=== PATIENT | male | born 1985 | race Asian ===

== ENCOUNTER 2019-07-03 14:06 | Inpatient (IN) | payer MEDICAID, SELFPAY ==
[~2019-07-03] VITALS: Ht 177.8 cm; Wt 77.4 kg
[2019-07-03] MEDS ORDERED: ROCURONIUM BROMIDE 50 MG/5 ML IV ONE ×2 (14:07→17:30)
[2019-07-03] MEDS ORDERED: ETOMIDATE 2 MG/ML VIAL IV ONE ×2 (14:07→17:30)
[2019-07-03] MEDS ORDERED: FEE EMEERGENCY 1 MIN EA MC ONE (14:07)
[2019-07-03] MEDS ORDERED: FEE PK DOSING 1 MIN EA MC ONE (14:07)
--- NOTE | 2019-07-03 14:20 | NUR ---
ABHIJIT FROM HOME TO ER BED 5. PT IS ALTERED ONLY WITHDRAWS FROM PAIN STIMULI. UNABLE TO GET INFORMATION FROM PT. PT BROUGHT IN FOR BEING FOUND UNCONSCIOUS BY FAMILY COVERED WITH VOMIT / SAT NOTED @ 85% DESPITE BEING ON 15% LPM VIA NON REBREATTHER MASK. PT NOTED BREATHING RAPID AND SHALLOW. NOTED COFFEE GROUND EMESIS AROUND HIS MOUTH. MD AT BEDSIDE FOR EVAL. AWAITING FOR FURTHER ORDERS
--- NOTE | 2019-07-03 14:24 | NUR ---
PT PREPARED FOR INTIBATION:
--- NOTE | 2019-07-03 14:25 | NUR ---
BRIAN RING (UNCLE) [phone] JACK(BOBBY) (SISTER) [phone]
[2019-07-03] MEDS ORDERED: PROPOFOL 100 ML ONE ×2 (14:26→19:33)
--- NOTE | 2019-07-03 14:26 | NUR ---
ETOMIDATE 30MG IVP
--- NOTE | 2019-07-03 14:27 | NUR ---
INTUBATED ET 7.5. 23 @ LIP. POSITIVE BILAT LUNG SOUND AND BILAT CHEST RISE.
--- NOTE | 2019-07-03 14:27 | NUR ---
ROCURONIUM 80MG IVP
[2019-07-03] MEDS: PROPOFOL 100 ML IV PRN ×9 (14:28→23:52)
--- NOTE | 2019-07-03 14:28 | NUR ---
PT IS BILAT UPPER ARM SOFT RESTRAINT TO PREVENT PT FROM PULLING TUBE.
--- NOTE | 2019-07-03 14:28 | NUR ---
PT STARTED ON PROPOFOL 5MCG/MIN. TOLERATING WELL. PT IS SEDATED
--- NOTE | 2019-07-03 14:29 | NUR ---
VENT SETTING: AC20, 500VT, 100%O2, +5PEEP
--- NOTE | 2019-07-03 14:30 | NUR ---
QUIROZ CATH INSERTED FR 16
--- NOTE | 2019-07-03 14:30 | NUR ---
RT PATIENT ORALLY INTUBATED DR ARNOLD WITH A 7.5 ETT SECURED AT 24CM AT THE LIP. PATIENT PLACED ON [facility] VENT WITH ORDERED SETTINGS. ALARMS CHECKED + AUDIBLE. RONDAU BAG AT HOB Addendum: 07/03/19 at 1511 by ELVIRA ASCENCIO RT Amended: Links added.
--- NOTE | 2019-07-03 14:33 | NUR ---
NGT APARTMENT RENTAL CLERK @ [facility]. PLACEMENT CONFIRMED BY +GURLING OVER EPIGASTRIC AREA UPON AUSCULTATION AND POSITIVE GASTRIC RESIDUAL RETURN WHICH IS COFFEE GROUND IN NATURE.
--- NOTE | 2019-07-03 14:46 | NUR ---
Ritika jackson in ED - 07/03/19 at 1504 by BERTHA ETOMIDATE 30MG IVP
--- NOTE | 2019-07-03 14:47 | NUR ---
Note renetta in EDM - 07/03/19 at 1504 by BERTHA INTUBATED ET 7.5. 23 @ LIP. POSITIVE BILAT LUNG SOUND AND BILAT CHEST RISE.
--- NOTE | 2019-07-03 14:47 | NUR ---
Ritika jackson in ED - 07/03/19 at 1504 by BERTHA ROCURONIUM 80MG IVP
[2019-07-03 15:05] LABS: BASOPHILS % (AUTO) 0.1 % (0.0-2.0); HEMATOCRIT 49 % (39-51); HEMOGLOBIN 16.6 g/dL (13.5-17.5); LYMPHOCYTES # (AUTO) 0.4 /CMM (0.8-4.8); LYMPHOCYTES % (AUTO) 2.9 % (20.0-44.0); MEAN CORPUSCULAR HGB CONC 34 g/dl (31.0-36.0); MEAN CORPUSCULAR VOLUME 83 fL (80-96); MONOCYTES # (AUTO) 0.2 /CMM (0.1-1.30); MONOCYTES % (AUTO) 1.4 % (2.0-12.0); NEUTROPHILS % (AUTO) 95.6 % (43.0-81.0); PLATELET COUNT (AUTO) 235 /CMM (150-450); RED BLOOD CELL COUNT(AUTO) 5.96 MIL/uL (4.5-6.0); WHITE BLOOD COUNT (AUTO) 12.6 K/uL (4.3-11.0)
[2019-07-03 15:20] LABS: ALANINE AMINOTRANSFERASE 82 U/L (12-78); ALBUMIN 4.1 g/dL (3.4-5.0); ALKALINE PHOSPHATASE 58 U/L (46-116); ASPARTATE AMINOTRANSFERASE 363 U/L (15-37); BILIRUBIN,DIRECT 0.1 mg/dL (0.0-0.2); BILIRUBIN,TOTAL 1.4 mg/dL (0.2-1.0); CALCIUM, SERUM 8.5 mg/dL (8.5-10.1); CARBON DIOXIDE 25 mmol/L (21-32); CHLORIDE 82 mmol/L (98-107); CREATININE 0.9 mg/dL (0.6-1.3); GLUCOSE 108 mg/dL (74-106); POTASSIUM 3.9 mmol/L (3.5-5.1); TOTAL PROTEIN, SERUM 7.7 g/dL (6.4-8.2); UREA NITROGEN, BLOOD 10 mg/dL (7-18)
[2019-07-03 15:22] LABS: SODIUM SERUM 114 mmol/L (136-145)
--- NOTE | 2019-07-03 15:26 | NUR ---
PROPOFOL INCREASED TO 10MCG/MIN, PT NOTED STARTING TO WAKE UP.
[2019-07-03 15:27] LABS: ALCOHOL, BLOOD < 3 mg/dL (0-0); MAGNESIUM 2.1 mg/dL (1.8-2.4)
--- NOTE | 2019-07-03 15:28 | NUR ---
RT AT BEDSIDE FOR ABG
[2019-07-03 15:31] LABS: BILIRUBIN,URINE Negative (NEGATIVE); BLOOD, URINE Large Ery/uL (NEGATIVE); COLOR,URINE Yellow (YELLOW); KETONES,URINE 15 (NEGATIVE); LEUKOCYTE ESTERASE ,URINE Negative (NEGATIVE); NITRITE, URINE Negative (NEGATIVE); PROTEIN,URINE Trace mg/dl (NEGATIVE); UGLUCOSE Negative (NEGATIVE); UROBILINOGEN,URINE 0.2 EU/dL (0.2)
[2019-07-03 15:34] LABS: APPEARANCE,URINE HAZY (CLEAR)
[2019-07-03 15:38] LABS: FERRITIN 193 ng/mL (8-388)
[2019-07-03 15:40] LABS: BACTERIA,URINE Few /HPF (None Seen); C-REACTIVE PROTEIN 1.9 mg/dL (0.0-0.9); RBC,URINE 20 /HPF (0-2); SQUAMOUS EPITHELIAL CELL,UR Few /HPF (None Seen); WBC,URINE 0-2 /HPF (0-3)
--- NOTE | 2019-07-03 15:49 | NUR ---
PT BACK FROM RADIOLOGY.
--- NOTE | 2019-07-03 15:50 | NUR ---
VENT 02 DECREASED TO 60% FROM 100% PER MD ORDERED. ABG WAS RELAYED TO MD BY RT
[2019-07-03 15:52] LABS: ABG BASE EXCESS -1.5 mmol/L; ABG PCO2 36.9 mmHg (35.0-45.0); ABG PH 7.406 (7.350-7.450); ABG PO2 191.7 mmHg (75.0-100.0); AaDO2 484.4 mmHg; COHb 0.4 % (0.5-1.5); MetHb 0.6 % (0.0-1.5); SITE, ABG Right Radial; VENT MODE, BG AC 20 500 100% +5
--- NOTE | 2019-07-03 15:54 | NUR ---
PROPOFOL INCREASED TO 15MCG/MIN PT IS NOTED WAKING UP MANIFESTED BY MOVING HIS ARMS
[2019-07-03] MEDS ORDERED: VANCOMYCIN 1 GM in IV D5W 250 ML IV ONE (16:00)
[2019-07-03] MEDS ORDERED: MEROPENEM 1,000 MG in IV NS 0.9% 100 ML IV ONE (16:00)
--- NOTE | 2019-07-03 16:18 | NUR ---
CALLED LUIS MANUEL NEPHJOHN, PAGED CANDLES POURER
[2019-07-03 16:19] LABS: CREATINE KINASE, TOTAL 59790 U/L (39-308)
--- NOTE | 2019-07-03 16:25 | NUR ---
urine output: 1625ml
[2019-07-03] MEDS ORDERED: IV NS 0.9% 1,000 ML BAG IV ONE (16:30)
--- NOTE | 2019-07-03 16:36 | NUR ---
CONSENT FOR PICC LINE INSERTION SIGNED BY . PT IS SADATED.
--- NOTE | 2019-07-03 16:39 | NUR ---
PT NOTED WAKING UP AGAIN. PROPOFOL INCREASED TO 20MCG. VSS
[2019-07-03 16:45] LABS: BAND % (MANUAL) 16 % (0.0-5.0); LYMPHOCYTES % (MANUAL) 2 % (16-48); MONOCYTES % (MANUAL) 2 % (0-11.0); NEUTROPHILS % (MANUAL) 80 (42-76)
--- NOTE | 2019-07-03 16:51 | NUR ---
PT NOTED AWAKING UP. PROPOFOL INCREASED TO PROPOFOL 25MCG.
[2019-07-03] MEDS ORDERED: ONDANSETRON HCL/PF 4 MG/2 ML VIAL IVP PRN (17:00)
[2019-07-03] MEDS ORDERED: MAGNESIUM HYDROXIDE 30 ML UDC PO PRN (17:00)
[2019-07-03] MEDS ORDERED: MAG HYDROX/AL HYDROX/SIMETH 30 ML UDC PO PRN (17:00)
[2019-07-03] MEDS ORDERED: HYDROCODONE/APAP 5/325MG 1 EACH TABLET PO PRN (17:00)
[2019-07-03] MEDS ORDERED: Z GUARD REMEDY 2 OZ OINT TP PRN (17:00)
[2019-07-03] MEDS ORDERED: ZOLPIDEM TARTRATE 5 MG TABLET PO PRN (17:00)
[2019-07-03] MEDS ORDERED: ACETAMINOPHEN 325 MG TABLET PO PRN (17:00)
--- NOTE | 2019-07-03 17:00 | NUR ---
CALLED LUIS MANUEL NEPHJOHN, NEEDLE LOOM SETTER PAGED
[2019-07-03] MEDS ORDERED: IV NS 0.9% 1,000 ML IV ONE (17:30)
[2019-07-03] MEDS ORDERED: PIPERACILLIN /TAZOBACTAM 3.375 G in IV D5W 50 ML IV SCH (18:00)
--- NOTE | 2019-07-03 18:00 | NUR ---
PICC LINE INSERTED BY HERBER DOSHI. WITH 3 LUMEN. PLACEMENT CONFIRMED BY PICC NURSE.
--- NOTE | 2019-07-03 18:00 | NUR ---
urine output : 3175 ml
[2019-07-03 18:10] LABS: CALCIUM, SERUM 6.2 mg/dL (8.5-10.1); CREATININE 0.9 mg/dL (0.6-1.3); POTASSIUM 3.1 mmol/L (3.5-5.1)
--- NOTE | 2019-07-03 18:17 | NUR ---
ET TUBE ADVANCED FROM 24CM TO 27CM PER DR ARNOLD. BILATERAL BREATH SOUNDS HEARD. Addendum: 07/03/19 at 1818 by SHAWNEE WOLFE RT Amended: Links added.
--- NOTE | 2019-07-03 18:26 | NUR ---
PT IS WAKING UP ONCE AGAIN PROPOFOL INCREASED TO PROPOFOL 45MCG/MIN
--- NOTE | 2019-07-03 18:41 | NUR ---
1IL NS BOLUS ORDER BY DR. ARNOLD CANCELLED. PT WAS GIVEN 2.8L NS BOLUS ALREADY. IS AWARE AND ACKNOWLEDGED
--- NOTE | 2019-07-03 19:16 | NUR ---
pT ASSIGNED ICU BED 252
[2019-07-03 19:38] LABS: ALBUMIN 2.6 g/dL (3.4-5.0); BILIRUBIN,DIRECT 0.2 mg/dL (0.0-0.2); TOTAL PROTEIN, SERUM 4.9 g/dL (6.4-8.2)
--- NOTE | 2019-07-03 20:05 | NUR ---
REPORT GIVEN TO HERBER SOTELO FOR HENOK.
--- NOTE | 2019-07-03 20:30 | NUR ---
RECEIVED PATIENT FROM ER,ORALLY INTUBATED ,SEDATED ON PROPOFOL AT 50 50 MCG/KG/MIN BUT STILL AGITATED,WITH BILATERAL SOFT WRIST RESTRAINTS.ON AC MODE,BREATHING REGULAR AND NON LABORED. PICC LINE @ YOANA ,ALL PORT WITH GOOD BLOOD RETURN. NGT TO LIWS WITH MINIMAL DRAINAGE. COMFORT CARE DONE,NEEDS ATTENDED. WAS FOUND UNRESPONSIVE AT HOME(NOT KNOWN HOW LONG PATIENT WAS DOWN), INTUBATED IN THE ER, CT HEAD(-).,+ SIGN OF VOMITING COFFEE GROUND MATERIAL FROM HOME.NGT INSERTED WITH MINIMAL OUTPUT OBTAINED.CT SHOWED LARGE BILATERAL LOWER LOBE CONSOLIDATIONS.CT CERVICAL,SPINE (-) FRACTURE
[2019-07-03 20:39] LABS: D-DIMER 1.01 mg/L(FEU (0.17-0.50)
--- NOTE | 2019-07-03 20:45 | NUR ---
PT TRANSPORTED TO UNIT ON [facility] WITH EMT, RT AND RN AT BEDSIDE W/ ACLS PROTOCOL. NAD NOTED.
[2019-07-03 20:46] VITALS: BP 120/63
[2019-07-03 21:00] VITALS: BP 99/59
[2019-07-03] MEDS: Sodium Bicarbonate 150 MEQ in IV NS 0.9% 1,000 ML IV PRN (21:14)
[2019-07-03 22:41] VITALS: BP 105/66
[2019-07-03 23:00] VITALS: BP 101/60
[2019-07-04] VITALS (38 sets, daily range): BP systolic 95–122; BP diastolic 41–72
--- NOTE | 2019-07-04 | NUR ---
WOKE UP VERY AGITATED,KICKING LEGS AND FORCING OUT HANDS OUT OF RESTRAINTS, PROPOFOL DRIP INCREASED Q 5 MINS UP TO 90 MCG/KG/MIN. CALLED MD TO REFER AGITATION,MAYBE PRN MEDS. TODD RIVERA RESPONDED,ORDERED ATIVAN PRN.
[2019-07-04] MEDS: PIPERACILLIN /TAZOBACTAM 3.375 G in IV D5W 50 ML IV SCH ×5 (00:12→23:17)
[2019-07-04] MEDS: LORAZEPAM INJ 2 MG/ML VIAL IV PRN ×2 (00:17→00:31)
[2019-07-04] MEDS: PROPOFOL 100 ML IV PRN ×9 (00:29→23:15)
[2019-07-04] MEDS ORDERED: VANCOMYCIN 1.25 GM in IV D5W 250 ML IV SCH ×2 (01:00→03:03)
--- NOTE | 2019-07-04 03:00 | NUR ---
FIO2 DECREASE TO 50 %
--- NOTE | 2019-07-04 03:26 | NUR ---
RT NOTE Pt rec'd orally intubated via ETT sz #7.5 secured at 27 cm at the lipline. Pt on [facility] vent on AC mode settings as charted. Sx'd for thick mod amt of knowles secretions. Alarms are set and audible . Vent Plugged into red outlet. Ambu bag bedside. Will continue to monitor. Addendum: 07/04/19 at 0327 by FREDRICK METZGER RT Amended: Links added.
[2019-07-04 04:49] LABS: BASOPHILS % (AUTO) 0.1 % (0.0-2.0); HEMATOCRIT 43 % (39-51); HEMOGLOBIN 14.5 g/dL (13.5-17.5); LYMPHOCYTES # (AUTO) 0.4 /CMM (0.8-4.8); LYMPHOCYTES % (AUTO) 3.1 % (20.0-44.0); MEAN CORPUSCULAR HGB CONC 34 g/dl (31.0-36.0); MEAN CORPUSCULAR VOLUME 83 fL (80-96); MONOCYTES # (AUTO) 0.5 /CMM (0.1-1.30); MONOCYTES % (AUTO) 4.8 % (2.0-12.0); NEUTROPHILS # (AUTO) 10.6 /CMM (1.8-8.9); PLATELET COUNT (AUTO) 185 /CMM (150-450); RED BLOOD CELL COUNT(AUTO) 5.15 MIL/uL (4.5-6.0); WHITE BLOOD COUNT (AUTO) 11.5 K/uL (4.3-11.0)
[2019-07-04 04:56] LABS: CALCIUM, SERUM 7.6 mg/dL (8.5-10.1); CREATININE 0.9 mg/dL (0.6-1.3); MAGNESIUM 2.3 mg/dL (1.8-2.4); PHOSPHORUS 1.3 mg/dL (2.5-4.9); POTASSIUM 3.4 mmol/L (3.5-5.1)
[2019-07-04 05:00] LABS: BILIRUBIN,DIRECT 0.2 mg/dL (0.0-0.2); BILIRUBIN,TOTAL 0.9 mg/dL (0.2-1.0); TOTAL PROTEIN, SERUM 5.8 g/dL (6.4-8.2)
--- NOTE | 2019-07-04 06:00 | NUR ---
SISTER CALLED(FROM OUT OF STATE) HER NAME IS THY, MADE RN AWARE THAT ACCORDING TO PATIENT'S COUSIN ,PATIENT TOOK SOME "SHROOM" LAST TUESDAY AFTERNOON TO NIGHT.ALSO WANTS TO LET US KNOW NOT TO TELL THEIR UNCLE (BRIAN) ABOUT PATIENT TAKING THIS STUFF.
--- NOTE | 2019-07-04 06:15 | NUR ---
RADIOLOGIST DR. FLORES CALLED TO PULL BACK ON THE ET TUBE BY 2-3 CM . 0620 RESP. THERAPIST WAS MADE AWARE.
[2019-07-04] MEDS: Sodium Bicarbonate 150 MEQ in IV NS 0.9% 1,000 ML IV PRN ×2 (06:18→16:05)
--- NOTE | 2019-07-04 06:55 | NUR ---
RT NOTE ETT Pulled back by 3 cm. ETT secured at 24cm per md orders Addendum: 07/04/19 at 0656 by FREDRICK METZGER RT Amended: Links added.
[2019-07-04] MEDS ORDERED: POTASSIUM PHOSPHATE MM 15 MMOL in IV NS 0.9% 250 ML IV SCH (08:00)
[2019-07-04] MEDS ORDERED: FEE PK DOSING 1 MIN EA MC ONE (08:31)
[2019-07-04 09:22] LABS: ABG BASE EXCESS 3.2 mmol/L; ABG OXYGEN SATURATION 98.7 % (92.0-98.5); ABG PCO2 30.8 mmHg (35.0-45.0); ABG PO2 180.6 mmHg (75.0-100.0); AaDO2 141.3 mmHg; COHb 0.2 % (0.5-1.5); MetHb 0.7 % (0.0-1.5); O2Hb 97.8 % (94.0-97.0); PEEP,BG 5 cm H2O; SITE, ABG Left Radial; VT, ABG 500 mL
[2019-07-04] MEDS: VANCOMYCIN 1.25 GM in IV D5W 250 ML IV SCH ×2 (10:26→17:20)
[2019-07-04] MEDS: ENOXAPARIN SODIUM 40 MG/0.4 ML DISP.SYRIN SQ SCH (10:27)
--- NOTE | 2019-07-04 12:29 | NUR ---
SEDATION VACATION COMPLETED. PT WOKE UP, FOLLOWED COMMANDS, MADE EYE CONTACT AND TRACKED. MOVED ALL EXTREMITIES ON COMMANDS. STRONG RUT HANDS AND LEGS. PT NODDED HEAD STATING UNDERSTANDING TO YES AND NO QUESTIONS. PT SHOOK HIS HEAD STATING HE HAD NOT BEEN SICK LATELY. NODDED HIS HEAD STATING HE HAD DONE SHROOMS RECENTLY. AFTER A FEW MINUTES PATIENT STARTED TO BECOME AGITATED. SEDATION RESUMED.
--- NOTE | 2019-07-04 17:08 | NUR ---
VANCO TROUGH RESULT = 13. PER PHARMACY OK TO GIVE CURRENT DOSE.
--- NOTE | 2019-07-04 19:30 | NUR ---
CHEMICAL UNIT OPERATOR INITIAL SHIFT NOTES RECEIVED PATIENT IN BED, EYES CLOSED, ORALLY INTUBATED ON MECHANICAL VENT, TOLERATING WELL, NO S/S OF RESPIRATORY DISTRESS AT THIS TIME. BREATHING EVEN AND NONLABORED. BEDSIDE TELEMETRY MONITORING READS SINUS RHYTHM. YOANA PICC PATENT AND INTACT, INFUSING BICARB DRIP AND DIPRIVAN DRIP. BILATERAL SOFT WRIST RESTRAINTS FOR SAFETY. WILL CONTINUE TO MONITOR
--- NOTE | 2019-07-04 19:42 | NUR ---
END OF SHIFT NOTE: PT HAD AN UNEVENTFUL SHIFT. COVID TEST CAME BACK NEGATIVE AT THE END OF THE SHIFT. SEE PREVIOUS NOTE REGARDING SEDATION VACATION. PER DR. AKINS PLAN TO DO A VENT WEANING TRIAL IN AM.
--- NOTE | 2019-07-04 20:07 | NUR ---
PT RECEIVED ORALLY INTUBATED WITH 7.5 ETT SECURED @24CM ON LIP [facility] WITH NOTED SETTINGS. NO RESP DISTRESS NOTED AT THIS TIME. AIRWAY PATENT AND SECURED. COMMUNICATIONS MARKETING INTERN DONE. PT SUCTIONED. VENT ALARMS SET AND AUDIBLE. VENT PLUGGED INTO TO RED OUTLET. WILL CONT TO MONITOR THE PT T/O SHIFT..
[2019-07-05] VITALS (32 sets, daily range): BP systolic 99–165; BP diastolic 42–99
[2019-07-05] MEDS: Sodium Bicarbonate 150 MEQ in IV NS 0.9% 1,000 ML IV PRN ×3 (01:05→19:53)
[2019-07-05] MEDS: VANCOMYCIN 1.25 GM in IV D5W 250 ML IV SCH ×3 (01:54→18:49)
[2019-07-05] MEDS: PROPOFOL 100 ML IV PRN ×2 (02:22→07:15)
[2019-07-05 04:33] LABS: BASOPHILS % (AUTO) 0.3 % (0.0-2.0); HEMATOCRIT 38 % (39-51); HEMOGLOBIN 13.1 g/dL (13.5-17.5); LYMPHOCYTES # (AUTO) 0.7 /CMM (0.8-4.8); LYMPHOCYTES % (AUTO) 7.8 % (20.0-44.0); MEAN CORPUSCULAR HGB CONC 34 g/dl (31.0-36.0); MEAN CORPUSCULAR VOLUME 84 fL (80-96); MONOCYTES # (AUTO) 0.6 /CMM (0.1-1.30); NEUTROPHILS % (AUTO) 84.9 % (43.0-81.0); PLATELET COUNT (AUTO) 150 /CMM (150-450); RED BLOOD CELL COUNT(AUTO) 4.57 MIL/uL (4.5-6.0); WHITE BLOOD COUNT (AUTO) 9.4 K/uL (4.3-11.0)
[2019-07-05 04:47] LABS: CALCIUM, SERUM 7.3 mg/dL (8.5-10.1); CREATININE 0.9 mg/dL (0.6-1.3)
[2019-07-05] MEDS: PIPERACILLIN /TAZOBACTAM 3.375 G in IV D5W 50 ML IV SCH ×3 (05:46→17:30)
[2019-07-05 08:54] LABS: PHOSPHORUS 2.1 mg/dL (2.5-4.9)
[2019-07-05 09:20] LABS: ABG BASE EXCESS 5.9 mmol/L; ABG OXYGEN SATURATION 98.8 % (92.0-98.5); ABG PCO2 41.6 mmHg (35.0-45.0); ABG PH 7.476 (7.350-7.450); AaDO2 122.4 mmHg; COHb 0.4 % (0.5-1.5); MetHb 0.3 % (0.0-1.5); O2Hb 98.1 % (94.0-97.0); PEEP,BG 5 cm H2O; SITE, ABG Right Radial; VENT MODE, BG SIMV PSV 12; VT, ABG 500 mL
--- NOTE | 2019-07-05 09:27 | NUR ---
PT EXTUBATED WITHOUT DIFFICULTY AT 0927. PT ALERT OX4, 3L NASAL CANNULA APPLIED.
[2019-07-05] MEDS ORDERED: POTASSIUM CHLORIDE 20 MEQ POWDER PACKET GT SCH (09:30)
[2019-07-05] MEDS ORDERED: DC PROPOFOL WHEN EXTUBATED XX PRN (10:00)
--- NOTE | 2019-07-05 10:00 | NUR ---
NG TUBE DC'D WITHOUT DIFFICULTY PER MD ORDERS. TIP INTACT
[2019-07-05] MEDS: ENOXAPARIN SODIUM 40 MG/0.4 ML DISP.SYRIN SQ SCH (10:12)
[2019-07-05] MEDS ORDERED: POTASSIUM CHLORIDE 10 MEQ TABLET.SA PO ONE (10:30)
--- NOTE | 2019-07-05 13:00 | NUR ---
BESIDE SWALLOW EVAL DONE BY RN. NO COUGHING OR CHOKING NOTED. PT O2 LEVEL REMAINED AT 100%.
[2019-07-05] MEDS: POTASSIUM PHOSPHATE MM 7.5 MMOL in IV NS 0.9% 100 ML IV SCH ×2 (14:43→18:49)
--- NOTE | 2019-07-05 17:19 | NUR ---
PT ALERT OX3 WEARING GLASSES, STATING THAT HIS VISION IS BLURRY WITH HIS GLASSES ON. PT WAS ON THE PHONE WITH A FRIEND WHEN HE TOOK HIS GLASSES OFF AND REALIZED HE COULD SEE BETTER WITHOUT HIS GLASSES. HIS FRIEND ASKED HIM IF HE HAD HIS CONTACTS ON. THE PATIENT STATED HE DIDN'T THINK SO. RN LOOKED AT PATIENTS EYES AND SAW THE OUTLINE OF PT'S CONTACTS. PT STATES HE PUT HIS CONTACTS IN HIS EYES THE MORNING BEFORE HE WAS ADMITTED. PT'S EYES WERE NOT REDDENED, PT DENIED SORENESS. RN ASSISTED PT IN REMOVING HIS CONTACTS. PER PT REQUEST CONTACTS WERE DISPOSED OF. PT STATES HE USUALLY ONLY WEARS HIS CONTACTS FOR 1 DAYS.
--- NOTE | 2019-07-05 19:17 | NUR ---
END OF SHIFT NOTE: PT HAD A PRODUCTIVE DAY. PT WAS EXTUBATED AT 0927, ON 3L NC. 3900ML URINE OUTPUT FROM QUIROZ. PT ATE 100% OF DINNER WITHOUT DIFFICULTY. PT CHECKED ON HOURLY AND PRN BY NURSING STAFF.
[2019-07-06] VITALS (17 sets, daily range): BP systolic 124–156; BP diastolic 75–99
[2019-07-06] MEDS: VANCOMYCIN 1.25 GM in IV D5W 250 ML IV SCH ×3 (01:00→17:28)
[2019-07-06 04:32] LABS: BASOPHILS % (AUTO) 0.2 % (0.0-2.0); EOSINOPHILS % (AUTO) 1.6 % (0.0-6.0); HEMATOCRIT 41 % (39-51); HEMOGLOBIN 13.6 g/dL (13.5-17.5); LYMPHOCYTES # (AUTO) 0.8 /CMM (0.8-4.8); LYMPHOCYTES % (AUTO) 8.8 % (20.0-44.0); MEAN CORPUSCULAR HGB CONC 34 g/dl (31.0-36.0); MEAN CORPUSCULAR VOLUME 84 fL (80-96); MONOCYTES # (AUTO) 0.6 /CMM (0.1-1.30); MONOCYTES % (AUTO) 7.2 % (2.0-12.0); NEUTROPHILS # (AUTO) 7.1 /CMM (1.8-8.9); NEUTROPHILS % (AUTO) 82.2 % (43.0-81.0); PLATELET COUNT (AUTO) 193 /CMM (150-450); RED BLOOD CELL COUNT(AUTO) 4.81 MIL/uL (4.5-6.0); WHITE BLOOD COUNT (AUTO) 8.7 K/uL (4.3-11.0)
[2019-07-06 04:34] LABS: CALCIUM, SERUM 8.2 mg/dL (8.5-10.1); CREATININE 0.8 mg/dL (0.6-1.3); MAGNESIUM 1.9 mg/dL (1.8-2.4); POTASSIUM 3.4 mmol/L (3.5-5.1)
--- NOTE | 2019-07-06 05:10 | NUR ---
PT BATHED [phone]. SHAVED HAIR WASHED COMPLETE LINEN CHANGE. PT ASK MULTIPLE QUESTIONS ABOUT LIGHTS IN ROOM, HOW TO BATHE, HOW TO BRUSH TEETH. BLOOD PRESSURE CUFF, WATER HE IS DRINKING, IF BLUEBERRIES KEEP HIM HEALTHY, OBSESSED OVER CLOCK ON WALL BECAUSE IT WAS 5 MIN OFF FROM HIS PHONE. PRATER WELL. WEAR GLASSES AND GLASSES CLEANED. LEADS CHANGED PULSE OX CHANGED PICC LINE DRESSING CHANGED. ALL EXPLAINED TO PATIENT IN DETAIL MULTIPLE TIMES. RIGHT AND LEFT AC HEP LOCK D/C RIGHT WAS LEAKING. LEFT WAS OCCLUDED. PT TOLERATED BATH AND CHANGE OF LINEN WELL
--- NOTE | 2019-07-06 07:29 | NUR ---
DID NOT SEE MED ON MAR
--- NOTE | 2019-07-06 07:30 | NUR ---
COMPUTATIONAL PHYSICIST OPENING NOTE Received patient awake in bed appears calm and relaxed. On RA tolerating well. No signs of bleeding currently extubated. No signs of distress. No signs of anxiousness. Arzola catheter in place draining clear pink urine. Skin intact. Has YOANA PICC line running antibiotic IVs and fluids. Safety measures reinforced. Call light within reach. Siderails up x2. Will cont to monitor.
--- NOTE | 2019-07-06 07:33 | NUR ---
DID NOT SEE ON APR.
[2019-07-06] MEDS: PIPERACILLIN /TAZOBACTAM 3.375 G in IV D5W 50 ML IV SCH ×6 (07:34→23:04)
--- NOTE | 2019-07-06 07:45 | NUR ---
ACQUISITION MARKETING MANAGER NOTE Dr. Soto ordered to repeat phosphorous level and stat urinalysis. Input order for phosphorous.
--- NOTE | 2019-07-06 07:52 | NUR ---
missed zosyn dose at 0000 and 0600. Called pharmacy ok to give at 0730, then next dose at 1300. informed oncoming Jignesh Faith. Vanco given early at 0730, instead of 0900 due to 0100 not given. Ok to give 1700 dose.
[2019-07-06] MEDS: Sodium Bicarbonate 150 MEQ in IV NS 0.9% 1,000 ML IV PRN (07:55)
[2019-07-06] MEDS: ENOXAPARIN SODIUM 40 MG/0.4 ML DISP.SYRIN SQ SCH (08:22)
--- NOTE | 2019-07-06 08:30 | NUR ---
CHAPERONE NOTE Urine collected from patient using sterile collection cup. Placed in specimen fridge called labs to sampler pickup.
--- NOTE | 2019-07-06 09:34 | NUR ---
BOX CAR WASHER NOTE Received order from Dr. Briseno to DC lobo catheter. Noted and carried out,
[2019-07-06] MEDS: POTASSIUM CHLORIDE 20 MEQ TAB.PRT.SR PO SCH ×2 (10:50→11:59)
[2019-07-06 12:00] LABS: APPEARANCE,URINE SLIGHTLY HAZY (CLEAR); BILIRUBIN,URINE NEGATIVE (NEGATIVE); BLOOD, URINE LARGE Ery/uL (NEGATIVE); COLOR,URINE AMBER (YELLOW); KETONES,URINE 15 (NEGATIVE); LEUKOCYTE ESTERASE ,URINE NEGATIVE (NEGATIVE); NITRITE, URINE NEGATIVE (NEGATIVE); PH,URINE 8.5 (5.0-8.0); PROTEIN,URINE 30 mg/dl (NEGATIVE); UGLUCOSE NEGATIVE (NEGATIVE); UROBILINOGEN,URINE 0.2 EU/dL (0.2)
[2019-07-06 12:01] LABS: RBC,URINE TOO NUMEROUS TO COUN /HPF (0-2); SQUAMOUS EPITHELIAL CELL,UR None Seen /HPF (None Seen)
[2019-07-06 12:02] LABS: BACTERIA,URINE None seen /HPF (None Seen); WBC,URINE 0-2 /HPF (0-3)
--- NOTE | 2019-07-06 12:45 | NUR ---
ICU TRANSFER NOTE Patient was transferred to via wheelchair in stable condition with IV meds and chart tolerated well. Set up in room 320-2. Gave report to Fabby CRAVEN for remington.
--- NOTE | 2019-07-06 13:00 | NUR ---
MS CAFETERIA CLERK FROM ICU NOTE Received patient awake in bed appears calm and relaxed. On RA tolerating well. No signs of bleeding .No signs of distress on room air. With mild signs of anxiousness saying he has short term memory and can't leave his ID and belongings in the cabinet. With BRP with standby assist. Skin intact. Has YOANA PICC line running antibiotic IVs and fluids. Safety measures reinforced. Call light within reach. Siderails up x2. Will cont to monitor.
--- NOTE | 2019-07-06 18:45 | NUR ---
PT RESTING IN BED AND ATE 100%DINNER AND REFUSED TO WATCH TV.DENIES PAIN OR DISTRESS.WITH ONGOING VANCO IV ATB INFUSING WELL.CALL LIGHT PLACED WITHIN REACH.
--- NOTE | 2019-07-06 20:00 | NUR ---
ALERT AND ORIENTED X4, STABLE ON ROOM AIR, NO COMPLAIN OF PAIN, AMBULATES WITH CAUTION, YOANA PICC LINE, PATENT, DRESSING DRY AND INTACT, CONTINENT OF BOWEL AND BLADDER, COOPERATIVE
[2019-07-06] MEDS: LORAZEPAM INJ 2 MG/ML VIAL IV PRN (20:50)
[2019-07-07] MEDS: VANCOMYCIN 1.25 GM in IV D5W 250 ML IV SCH ×2 (00:01→08:24)
[2019-07-07] MEDS: PIPERACILLIN /TAZOBACTAM 3.375 G in IV D5W 50 ML IV SCH ×2 (05:31→11:11)
--- NOTE | 2019-07-07 06:51 | NUR ---
RN NOTES ALERT AND ORIENTED X4, STABLE ON ROOM, NO DISTRESS, DENIES ANY PAIN AT THIS TIME, AMBULATES IN ROOM AND HALLWAY, BM X1, YOANA PICC LINE PATENT, DRESSING DRY AND INTACT, KENDRA GARVEY SCHEDULED, CONTINUE HOSPITALIZATION, MONITOR CPK
[2019-07-07 08:00] VITALS: BP 146/92
--- NOTE | 2019-07-07 08:00 | NUR ---
MS RN AM NOTES ALERT AND ORIENTED X4, STABLE ON ROOM AIR, NO COMPLAIN OF PAIN/DISTRESS. AMBULATES AD JOELLEN. YOANA PICC LINE, PATENT, DRESSING DRY AND INTACT, CONTINENT OF BOWEL AND BLADDER, WITH BRP.COOPERATIVE.DR JEREZ AND I COORDINATED WITH LAB FOR THE QUESTIONABLE TCK RESULT DATED 07/06/19 AT 2218 : [id number] AND FOR LAB DRAW MISSED IN OBTAINING BLOOD DRAW FOR AM LABS ORDERED. WILL CONTINUE TO FOLLOW UP WITH LABS AND UPDATE DR JEREZ FOR LATEST TCK RESULT.CALL LIGHT PLACED WITHIN REACH.
[2019-07-07 08:45] LABS: BASOPHILS % (AUTO) 0.6 % (0.0-2.0); EOSINOPHILS % (AUTO) 3.7 % (0.0-6.0); HEMATOCRIT 47 % (39-51); HEMOGLOBIN 15.2 g/dL (13.5-17.5); LYMPHOCYTES # (AUTO) 0.8 /CMM (0.8-4.8); LYMPHOCYTES % (AUTO) 10.4 % (20.0-44.0); MEAN CORPUSCULAR HGB CONC 33 g/dl (31.0-36.0); MEAN CORPUSCULAR VOLUME 85 fL (80-96); MONOCYTES # (AUTO) 0.4 /CMM (0.1-1.30); MONOCYTES % (AUTO) 4.8 % (2.0-12.0); NEUTROPHILS # (AUTO) 6.2 /CMM (1.8-8.9); NEUTROPHILS % (AUTO) 80.5 % (43.0-81.0); PLATELET COUNT (AUTO) 238 /CMM (150-450); WHITE BLOOD COUNT (AUTO) 7.7 K/uL (4.3-11.0)
[2019-07-07] MEDS: ENOXAPARIN SODIUM 40 MG/0.4 ML DISP.SYRIN SQ SCH (08:56)
[2019-07-07 09:01] LABS: POTASSIUM 3.8 mmol/L (3.5-5.1)
--- NOTE | 2019-07-07 09:16 | NUR ---
BASSAM RIVERA OF LAB CALLED AND STATED THAT THE RESULT DATED 07/06/19 AT 2218 WAS MADE IN ERROR DUE DILUTION OF TEST AND THE LATEST TCK RESULT IS [id number].NOTIFIED DR JEREZ OF THE LATEST TCK RESULT WITH ORDER TO ADMINISTER IV 0.9NS IVF TO RUN AT 150 ML/HR RATE.
[2019-07-07] MEDS: IV NS 0.9% 1,000 ML IV PRN ×2 (11:07→21:00)
[2019-07-07 16:00] VITALS: BP 126/77
[2019-07-07 20:00] VITALS: BP 126/70
--- NOTE | 2019-07-07 20:02 | NUR ---
RN NOTES ALERT AND ORIENTED X4, STABLE ON ROOM AIR, NO COMPLAIN OF PAIN, NOTED AMBULATING IN ROOM AND HALLWAY, REPORTED BM X1 TODAY, IV ABX DISCONTINUED, NS AT 150 ML/HR. WILL CONTINUE TO MONITOR.
[2019-07-07 20:38] VITALS: BP 126/70
[2019-07-07] MEDS: LORAZEPAM INJ 2 MG/ML VIAL IV PRN (23:17)
[2019-07-08] MEDS: IV NS 0.9% 1,000 ML IV PRN ×3 (05:03→18:57)
--- NOTE | 2019-07-08 06:55 | NUR ---
RN NOTES ALERT AND ORIENTED X4, STABLE ON ROOM AIR, CALM, COOPERATIVE, AMBULATES IN ROOM AND HALLWAY, IV ABX DISCONTINUED, FOLLOW UP CPK, CONTINUE IV FLUIDS.
[2019-07-08 07:04] LABS: BASOPHILS % (AUTO) 0.3 % (0.0-2.0); EOSINOPHILS % (AUTO) 7.1 % (0.0-6.0); HEMATOCRIT 43 % (39-51); HEMOGLOBIN 14.1 g/dL (13.5-17.5); LYMPHOCYTES # (AUTO) 0.9 /CMM (0.8-4.8); MEAN CORPUSCULAR HGB CONC 33 g/dl (31.0-36.0); MEAN CORPUSCULAR VOLUME 84 fL (80-96); MONOCYTES # (AUTO) 0.5 /CMM (0.1-1.30); MONOCYTES % (AUTO) 8.6 % (2.0-12.0); NEUTROPHILS # (AUTO) 4.1 /CMM (1.8-8.9); PLATELET COUNT (AUTO) 234 /CMM (150-450); RED BLOOD CELL COUNT(AUTO) 5.05 MIL/uL (4.5-6.0); WHITE BLOOD COUNT (AUTO) 5.9 K/uL (4.3-11.0)
[2019-07-08 07:30] LABS: CALCIUM, SERUM 8.3 mg/dL (8.5-10.1); CREATININE 0.8 mg/dL (0.6-1.3)
--- NOTE | 2019-07-08 07:30 | NUR ---
RN MS NOTES PT AWAKE, ALERT AND ORIENTED, NO COMPLAINT OF PAIN, RESPIRATIONS NORMAL, AMBULATES TO THE BATHROOM WITH STEADY GAIT, SEEN BY DR. JEREZ, PLAN OF CARE DISCUSSED WITH PT, VERBALIZED UNDERSTANDING, IV FLUIDS INFUSING, CALL LIGHT WITHIN REACH.
[2019-07-08 08:00] VITALS: BP 127/99
[2019-07-08] MEDS: ENOXAPARIN SODIUM 40 MG/0.4 ML DISP.SYRIN SQ SCH (08:35)
--- NOTE | 2019-07-08 12:43 | NUR ---
RN MS NOTES PT AWAKE, SITTING IN BED, EATING LUNCH, NO COMPLAINT AT THIS TIME, IV FLUIDS INFUSING WELL, CALL LIGHT WITHIN REACH, NEEDS ATTENDED.
[2019-07-08 16:00] VITALS: BP 126/81
--- NOTE | 2019-07-08 18:38 | NUR ---
RN MS NOTES PT IN BED, AWAKE, ALERT AND ORIENTED, NO COMPLAINT OF PAIN OR ANY DISCOMFORT, SPEAKING ON THE PHONE, IV FLUIDS INFUSING WELL, CALL LIGHT WITHIN REACH, ATE DINNER WITH GOOD APPETITE, ALL NEEDS ATTENDED.
[2019-07-08 20:00] VITALS: BP 127/85
[2019-07-09] MEDS: IV NS 0.9% 1,000 ML IV PRN ×3 (02:56→15:14)
--- NOTE | 2019-07-09 06:30 | NUR ---
RN MS CLOSING NOTES PT IN BED, AWAKE, ALERT AND ORIENTED, NO COMPLAINT OF PAIN OR ANY DISCOMFORT, IV FLUIDS INFUSING WELL NS AT 150 ML PER HOUR. PATIENT ROUTINELY GETTING UP TO USE RESTROOM. , CALL LIGHT WITHIN REACH, REVIEWED POC QUESTIONS CONCERNS ATTENDED. WILL ENDORSE TO ONCOMING SHIFT.
[2019-07-09 07:23] LABS: CALCIUM, SERUM 8.6 mg/dL (8.5-10.1); CREATININE 0.8 mg/dL (0.6-1.3); POTASSIUM 3.8 mmol/L (3.5-5.1)
--- NOTE | 2019-07-09 07:30 | NUR ---
MS/RN Opening note Patient received from night custodian. A/O X4, vital signs stable, denies any pain or shortness of breath at this time. IV fluids infusing at 150ml/hr, no signs of infiltration seen. All needs addressed, time allowed for questions and concerns to be addressed. Safety measures in place, call light within reach. Will continue to monitor and ensure safety.
[2019-07-09 08:01] VITALS: BP 129/67
[2019-07-09] MEDS: ENOXAPARIN SODIUM 40 MG/0.4 ML DISP.SYRIN SQ SCH (08:11)
[2019-07-09 08:25] VITALS: BP 129/67
--- NOTE | 2019-07-09 08:40 | NUR ---
MS/RN S/B Dr Soto Seen by Dr Soto - continue hospital stay as labs stabilize. Continue with hydration at 150ml/hr.
--- NOTE | 2019-07-09 09:24 | NUR ---
MS/RN Labs Received call from lab with critical results: -TCK - [id number] -CK-MB - 30.8 Lab values are trending down, Dr Soto made aware.
--- NOTE | 2019-07-09 11:40 | NUR ---
SOCIAL WORK NOTE: Pt is a 33 year old male who was BIB EMS from home after being found unconscious with vomit by a family member. Per pt he states that he had been doing mushrooms and believes he had a "bad trip" and lost consciousness. He states that he does not remember what happened and states that he is going based on what family has told him. Pt states that he has been doing "shrooms" for the past 2 years. Pt states he is not addicted to them and states that he does not do them often. Pt states that his family is aware that he does mushrooms and that they are "okay" with it. Pt stated that he currently lives with his uncle and wishes for this information to remain private as he states, "my uncle would not understand, so I don't want him to know. But my parents and siblings know I do this and they are supportive." Pt denies mental health health history and denies suicidal/homicide ideation and denies visual/auditory hallucinations. Pt identifies his mom, dad, brother, and sister who is a psychiatrist as his main support systems. Pt states his sister will be helping him seek therapy and states he sees this as a positive experience as he has learned a lot from this and states he is contemplating stopping using mushrooms. Pt denied other illicit drug/alcohol use and also refused referrals to outpatient/inpatient substance abuse treatment centers. SW placed referrals in pts chart.
--- NOTE | 2019-07-09 15:29 | NUR ---
MS/RN Insurance Patient has several questions regarding his insurance, informed patient case coordinator Thais who stated that she would call and speak with the patient.
[2019-07-09 16:11] VITALS: BP 121/70
--- NOTE | 2019-07-09 18:30 | NUR ---
MS/RN End note New midline to be inserted as previous line accidently pulled out, per nursing supervisor engines road nurse will be here to insert at 2200. Denies any pain or shortness of breath, all questions and concerns addressed, will endorse to manufacturing supervisor 2nd shift.
--- NOTE | 2019-07-09 19:40 | NUR ---
MS RN OPENING NOTES RECEIVED PATIENT IN BED ALERT AND ORIENTED X 3. VERBALLY RESPONSIVE AND ABLE TO FOLLOW DIRECTIONS. BREATHING REGULAR AND UNLABORED ON ROOM AIR. AWAITING MIDLINE INSERTION WITH ORDERS NOTED. DENIES SUICIDAL IDEATION. NO COMPLAINTS OF PAIN/DISCOMFORT REPORTED AT THIS TIME. BED LOW AND LOCKED ON SEMI FOWLERS POSITION. CALL LIGHT IN REACH. WILL CONTINUE TO MONITOR.
[2019-07-09 20:00] VITALS: BP 111/71
--- NOTE | 2019-07-10 02:10 | NUR ---
MS RN NOTES S/P MIDLINE INSERTION WITH NO ACTIVE BLEEDING NOTED. NO COMPLAINTS OF PAIN REPORTED AT THIS TIME. CONNECTED TO IV FLUIDS, INFUSING WELL. WILL CONTINUE TO MONITOR.
[2019-07-10] MEDS: IV NS 0.9% 1,000 ML IV PRN (05:54)
--- NOTE | 2019-07-10 06:20 | NUR ---
MS RN CLOSING NOTES PATIENT IN BED ALERT AND ORIENTED X 3. AFEBRILE WITH NO S/S OF DISTRESS OBSERVED. RIGHT UPPER ARM MIDLINE PATENT AND INFUSING WELL. NO COMPLAINTS OF PAIN/DISCOMFORT REPORTED THE WHOLE SHIFT. BED LOW AND LOCKED ON SEMI FOWLERS POSITION. CALL LIGHT IN REACH. WILL ENDORSE TO MORNING SHIFT FOR HENOK.
--- NOTE | 2019-07-10 07:30 | NUR ---
MS/RN NOTE THE PATIENT IS RECEIVED IN BED. PATIENT ALERT AND ORIENTED X4. DENIES PAIN. IN ROOM AIR AND DENIES SOB. RESPIRATION REGULAR AND UNLABORED. DENIES PAIN. YOANA MIDLINE PATENT AND NS INFUSING AT 150ML/HR. NO S/S INFILTRATION NOTED. BED LOW AND LOCKED. SIDE RAILS UP X2. CALL LIGHT WITHIN REACH. WILL CONTINUE TO MONITOR.
[2019-07-10 07:42] LABS: CALCIUM, SERUM 8.6 mg/dL (8.5-10.1); CREATININE 0.8 mg/dL (0.6-1.3); POTASSIUM 3.9 mmol/L (3.5-5.1)
[2019-07-10] MEDS: ENOXAPARIN SODIUM 40 MG/0.4 ML DISP.SYRIN SQ SCH (08:40)
--- NOTE | 2019-07-10 14:51 | NUR ---
MS/RN NOTE THE PATIENT ALERT AND ORIENTED X4. DENIES PAIN. RESPIRATION REGULAR AND UNLABORED. IN ROOM AIR AND SATURATION IS AT 98%. DENIES SOB. THE PATIENT IN NO APPARENT DISTRESS. PATIENT IS PROVIDED WITH DISCHARGE EDUCATION AND HE VERBALIZED UNDERSTANDING. REMOVED YOANA MIDLINE AND NO BLEEDING FROM THE SITE. NO MISSING PARTS FROM THE MIDLINE NOTED. PATIENT ACCOMPANIED TO THE EXIT FOR THE DISCHARGE. PATIENT GOT PICKED UP BY HIS UNCLE ON A CAR. THE PATIENT REFUSED TO GIVE THE NAME OF HIS UNCLE. PATIENT LEFT THE HOSPITAL IN STABLE CONDITION.
== END 2019-07-10 15:00 | disposition home or self-care (01) | DRG 133 ==
LOC: ER 14:06 → ICU 19:21 → MED 07-06 12:39
PROVIDERS: ADMIT Family Medicine; ATTEND Nurse Practitioner Acute Care
PROC: 5A1945Z Respiratory Ventilation, 24-96 Consecutive Hours (ICD-10-PCS; principal; 2019-07-03)
PROC: 02HV33Z Insertion of Infusion Device into Superior Vena Cava, Percutaneous Approach (ICD-10-PCS; principal; 2019-07-03)
PROC: B548ZZA Ultrasonography of Superior Vena Cava, Guidance (ICD-10-PCS; principal; 2019-07-03)
PROC: 0BH17EZ Insertion of Endotracheal Airway into Trachea, Via Natural or Artificial Opening (ICD-10-PCS; principal; 2019-07-03)
PROC: 05HY33Z Insertion of Infusion Device into Upper Vein, Percutaneous Approach (ICD-10-PCS; 2019-07-09)
DX: J96.01 Acute respiratory failure with hypoxia (principal); K72.00 Acute and subacute hepatic failure without coma; J69.0 Pneumonitis due to inhalation of food and vomit; G93.41 Metabolic encephalopathy; J15.9 Unspecified bacterial pneumonia; E83.39 Other disorders of phosphorus metabolism; M62.82 Rhabdomyolysis; E87.1 Hypo-osmolality and hyponatremia; E87.2 Acidosis; E87.6 Hypokalemia
CPT/HCPCS: 31720; 36415; 36600; 70450-TC; 71045-TC; 72125-TC; 80048-TC; 80061-TC; 80076-TC; 80202-TC; 80305; 81000-TC; 82140-TC; 82550-TC; 82553; 82728-TC; 82803-TC; 83605-TC; 83615-TC; 83735-TC; 84100-TC; 84484-TC; 85025-TC; 85378-TC; 85730-TC; 86140-TC; 87040-TC; 87081-TC; 87086-TC; 93307-TC; 94003-TC; 99082-TC; C1751; G0378; G0480; J1650; J2060; J2185; J2543; J3370; J3490; J7030; J7050; J7060

== ENCOUNTER → 2024-01-19 | Emergency (ER) | payer MEDICAID, OTHER ==
[~2024-01-19] VITALS: Ht 170.2 cm; Wt 71.2 kg
[2024-01-19 21:37] VITALS: BP 131/83; TEMP 98; O2SAT 99
== END | disposition home or self-care (01) ==
LOC: ER 20:44
DX: J02.9 Acute pharyngitis, unspecified (principal); Z60.2 Problems related to living alone; Z87.09 Personal history of other diseases of the respiratory system